=== PATIENT | male | born 1975 | race Caucasian/White ===

== ENCOUNTER 2019-05-15 17:19 | Emergency (ER) | payer OTHER ==
[2019-05-15 17:43] VITALS: BP 111/76
--- NOTE | 2019-05-15 17:48 | UC ---
General HPI - HPI Summary HPI Summary: R ear pain. worsening since yesterday. hx of inner and outer ear infections. no fever, CARTAGENA or uri. - History of Current Complaint Stated Complaint: RIGHT EAR PAIN Time Seen by Provider: 05/15/19 17:39 Hx Obtained From: Patient Onset/Duration: Gradual Onset Timing: Constant - Allergy/Home Medications Allergies/Adverse Reactions: Allergies Allergy/AdvReac Type Severity Reaction Status Date / Time bee stings Allergy Severe facial Uncoded 05/15/19 17:43 swelling/hives Home Medications: Home Medications EPINEPHrine [Epipen] 0.3 mg IJ SEE INSTRUCTIONS PRN 05/15/19 [History Confirmed 05/15/19] PMH/Surg Hx/FS Hx/Imm Hx - Additional Past Medical History Additional PMH: allergies GI/ History: Gastroesophageal Reflux - Surgical History Surgical History: Yes Surgery Procedure, Year, and Place[place] [address] [facility] [place] [address] [facility] [place] Family History Known Family History: Positive: Hypertension - Social History Alcohol Use: Occasionally Substance Use Type: None Smoking Status (MU): Current Some Day Smoker Type: Cigarettes Amount Used/How Often: 10 CIGS A DAY, TRYING TO QUIT Review of Systems All Other Systems Reviewed And Are Negative: No Constitutional: Negative: Fever, Chills Skin: Negative: Rash Eyes: Negative: Drainage, Eye Redness ENT: Positive: Ear Ache - R. Negative: Sore Throat, Sinus Congestion Neurological: Negative: Headache Physical Exam Triage Information Reviewed: Yes Appearance: Well-Appearing Vital Signs Reviewed: Yes Eyes: Positive: Conjunctiva Clear ENT: Positive: Pharynx normal, TMs normal, Other - L canal clear. R canal with mild swelling and erythema plus pain with pressure on tragus. No auricular adenopathy or mastoid tenderness.. Negative: Nasal congestion, Nasal drainage Neck: Positive: Supple, Nontender, No Lymphadenopathy Neurological: Positive: Alert Psychological: Positive: Age Appropriate Behavior Skin Exam: Normal Skin: Negative: Rashes Course/Dx - Diagnoses Provider Diagnosis: Otitis externa Discharge ED - Sign-Out/Discharge Documenting (check all that apply): Patient Departure All imaging exams completed and their final reports reviewed: No Studies - Discharge Plan Condition: Stable Disposition: HOME Prescriptions: Ciproflox/Dexameth OTIC.SUSP* [Ciprodex OTIC.SUSP*] 4 drop .SEE ORDER BID 7 Days #1 btl Patient Education Materials: Otitis Externa (ED) Referrals: Fran Ortiz MD [Primary Care Provider] - 7 Days - Billing Disposition and Condition Condition: STABLE Disposition: Home - Attestation Statements Provider Attestation: This patient was not seen by me. I was available for consult. ISABEL
== END 2019-05-15 17:52 | disposition home or self-care (01) ==
LOC: UCCORT 17:19
DX: H60.91 Unspecified otitis externa, right ear (principal); Z86.69 Personal history of other diseases of the nervous system and sense organs; F17.210 Nicotine dependence, cigarettes, uncomplicated
CPT/HCPCS: 99212; G0463